=== PATIENT | male | born 1950 | race Caucasian/White ===

== ENCOUNTER 2020-07-31 14:33 | Emergency (ER) | payer MEDICARE ==
--- NOTE | 2020-07-31 15:42 | EDM.PDOC ---
ED HPI GENERAL MEDICAL PROBLEM - General Chief Complaint: Lower Extremity Injury/Pain Stated Complaint: LT ANKLE INJURY Time Seen by Provider: 07/31/20 15:12 Source of Information: Reports: Patient, RN Notes Reviewed History Limitations: Reports: No Limitations - History of Present Illness INITIAL COMMENTS - FREE TEXT/NARRATIVE: Patient is a 69-year-old male who presents to the ED for the evaluation of his left ankle injury. 1-1/2 hours prior to arrival to the ER, the patient was pheasant hunting, he went to plant his left foot to take a shot, and he ended up rolling his left ankle. He states that he heard a pop, and had pain in the ankle after then. He states that the pain does seem to radiate up the leg, and into his knee. He is not having any knee pain however. He does have a history of a left knee replacement, roughly 3 years ago. States he has been able to bear weight but is been very painful. No numbness or tingling, but there is quite a bit of swelling on the left lateral ankle. He can wiggle toes in all range of motion, and again move his ankle in all range of motion with little difficulty. Patient did not take any medications prior to coming to the ER. Patient denies any other sick-like symptoms, fever/chills, cough/shortness of breath, nausea/vomiting/diarrhea. Left Ankle Pain Score (Numeric/FACES): 3 - Related Data Allergies Allergy/AdvReac Type Severity Reaction Status Date / Time No Known Allergies Allergy Verified 07/31/20 15:19 Home Meds: Home Meds Acetaminophen/HYDROcodone [[place] 325-5 MG] 1 tab PO Q6H PRN #15 tablet 07/31/20 [Rx] Allopurinol [Zyloprim] 100 mg PO DAILY 07/31/20 [History] Cetirizine [ZyrTEC] 10 mg PO BID 07/31/20 [History] Multivitamin [Multivitamins] 1 tab PO DAILY 07/31/20 [History] amLODIPine [Norvasc] 5 mg PO DAILY 07/31/20 [History] lisinopriL [Lisinopril] 20 mg PO DAILY 07/31/20 [History] Review of Systems - Review of Systems Review Of Systems: Comprehensive ROS is negative, except as noted in HPI. ED EXAM, GENERAL - Physical Exam Exam: See Below Exam Limited By: No Limitations General Appearance: Alert, WD/WN, No Apparent Distress Respiratory/Chest: No Respiratory Distress, Lungs Clear, Normal Breath Sounds, No Accessory Muscle Use, Chest Non-Tender Peripheral Pulses: 2+: Dorsalis Pedis (L), Dorsalis Pedis (R) Extremities: Normal Range of Motion, Normal Capillary Refill, Other (swelling noted to left lateral malleolus) Neurological: Alert, Oriented, Normal Cognition, No Motor/Sensory Deficits Psychiatric: Normal Affect, Normal Mood Skin Exam: Warm, Dry, Intact, Normal Color, No Rash Course - Vital Signs Last Recorded V/S: Last Vital Signs Temp 97.5 F 07/31/20 15:16 Pulse 77 07/31/20 15:16 Resp 16 07/31/20 15:16 BP 145/84 H 07/31/20 15:16 Pulse Ox 95 07/31/20 15:16 - Orders/Labs/Meds Orders: Active Orders 24 hr Category Date Time Status Ankle Min 3V Lt [CR] Stat Exams 07/31/20 15:19 Taken - Re-Assessments/Exams Free Text/Narrative Re-Assessment/Exam: 07/31/20 15:42 Patient presents to the ED for evaluation of his left ankle injury. Have ordered x-rays for today's purposes. Patient is not requesting any pain medication at this time. 07/31/20 16:26 The patient's x-rays have returned, do demonstrate a distal fibula fracture, nondisplaced. Official radiology read is pending. X-rays were reviewed by myself and Dr. Palacios. Patient will have the ankle immobilized and be nonweightbearing at this time and have him follow-up with orthopedics for further management. Patient is agreeable to this plan. Departure - Departure Time of Disposition: 16:28 Disposition: Home, Self-Care 01 Condition: Good Clinical Impression: Fracture of distal fibula Qualifiers: Encounter type: initial encounter Fracture type: closed Fracture morphology: other fracture Laterality: left Qualified Code(s): S82.832A - Other fracture of upper and lower end of left fibula, initial encounter for closed fracture - Discharge Information *PRESCRIPTION DRUG MONITORING PROGRAM REVIEWED*: Yes *COPY OF PRESCRIPTION DRUG MONITORING REPORT IN PATIENT SAM: No Instructions: Nondisplaced Fibular Ankle Fracture Treated With Immobilization, Adult Referrals: PCP,Not In Area [Primary Care Provider] - Forms: ED Department Discharge Additional Instructions: You have been evaluated in the ED for your left ankle injury. Your x-ray demonstrated a distal fibula fracture. You have been fitted with Jared wraps for compression to help relieve the swelling and a walking boot for immobilization. You are to stay non-weightbearing until you can be evaluated by orthopedics. You have been given crutches for walking. Please use ice as tolerated to the affected area. You should elevate the affected area as much as possible to provide further relief from swelling. You may take Tylenol 500 mg or ibuprofen 600mg q6 hrs for pain relief. Please do so until you have a tolerable level of pain with activity. Do not exceed 4000mg Tylenol, Do not exceed 3200mg ibuprofen in a 24 hour time period. You were given a prescription for a strong pain medication, hydrocodone/acetaminophen 5/325, please take 1 tab every 6 hours as needed for pain not relieved by Tylenol or ibuprofen alone. Please note this does contain Tylenol in it, so do not take more than 4000 mg in a 24-hour time span. These medications can be addictive, so please take as few as possible to achieve adequate pain control. These meds can also be quite constipating, recommend that you increase your oral fluid intake and take a stool softener like MiraLAX while taking these medications. Please call Ortho for follow-up and further evaluation Dr. Rapp is our orthopedic surgeon, his office number is [phone]. Please call and set up an appointment as soon as possible for further management. Please return to ED if your symptoms should change or worsen. Sepsis Event Note (ED) - Evaluation Sepsis Screening Result: No Definite Risk - Focused Exam Vital Signs: Vital Signs Temp Pulse Resp BP Pulse Ox 07/31/20 15:16 97.5 F 77 16 145/84 H 95 - My Orders Last 24 Hours: My Active Orders 07/31/20 15:19 Ankle Min 3V Lt [CR] Stat - Assessment/Plan Last 24 Hours: My Active Orders 07/31/20 15:19 Ankle Min 3V Lt [CR] Stat
== END 2020-07-31 17:07 | disposition home or self-care (01) ==
LOC: JD.ED 14:33
DX: S82.832A Other fracture of upper and lower end of left fibula, initial encounter for closed fracture (principal); X50.1XXA Overexertion from prolonged static or awkward postures, initial encounter
CPT/HCPCS: 73610-LT; 99283-25